=== PATIENT | male | born 1955 | race Caucasian/White ===

== ENCOUNTER 2021-03-22 16:50 | Emergency (ER) | payer MEDICAID, SELFPAY ==
[2021-03-22 16:51] VITALS: BP 160/104; PULSE 86; RESP 14; TEMP 36.4; O2SAT 97; BMI 28.6
--- NOTE | 2021-03-22 17:04 | CT_ITS ---
STUDY: CT BRAIN WITHOUT CONTRAST REASON FOR EXAM: Male, 65 years old. injury RADIATION DOSAGE (If Supplied By Facility): CTDIvol = ( 44.99 ) mGy, DLP = ( 779.24 ) mGycm TECHNIQUE: Transaxial CT imaging of the brain was performed without administration of intravenous contrast material. Individualized dose optimization techniques were used for this CT. COMPARISON: No relevant priors. FINDINGS: Normal soft tissue structures. Normal calvarium. Calcification of cavernous carotids. Mild atrophy and periventricular white matter ischemic changes.. There is diffuse hypoattenuation in the right frontal and parietal lobes likely on the basis of old infarct. Normal basal ganglia and thalami. Normal brainstem. Normal cerebellum. Sella deformity likely of no significance. There is no intracranial hemorrhage. There are no findings of an acute ischemic infarction. Normal visualized paranasal sinuses. CT/Brain/Head without Contrast IMPRESSION: Probable old right frontal parietal infarct. No evidence for acute intracranial bleed. Electronically Signed: Arnie Ortiz MD at 17:58 EDT , Service support ,
--- NOTE | 2021-03-22 17:04 | CT_ITS ---
STUDY: CT FACIAL BONES WITHOUT CONTRAST REASON FOR EXAM: Male, 65 years old. injury RADIATION DOSAGE (If Supplied By Facility): CTDIvol = ( 29.38 ) mGy, DLP = ( 576.84 ) mGycm TECHNIQUE: The patient was scanned in a multi detector CT scanner. Sagittal and coronal images were reconstructed. Individualized dose optimization techniques were used for this CT. COMPARISON: None. FINDINGS: There is premaxillary and paranasal soft tissue swelling appears to be in association with minimally depressed fracture of the right nasal bones and tiny chip fracture of the anterior nasal spine. There is a fracture and septal deviation towards the right with extensive mucosal thickening in the nasal cavities bilaterally Normal orbital caraballo and orbital contents.. Mild mucosal thickening of the ethmoid air cells. CT/Sinus/Facial Bone IMPRESSION: Minimally depressed fracture of the right nasal bone with apparent fracture of the nasal septum which is deviated towards the right with extensive soft tissue swelling in the nasal cavities. Tiny chip fracture of the anterior nasal spine Electronically Signed: Arnie Ortiz MD at 18:06 EDT , Service support ,
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
--- NOTE | 2021-03-22 17:12 | RAD_ITS ---
STUDY: X-RAY - RIGHT HAND REASON FOR EXAM: Male, 65 years old. rt thumb injury, pain. TECHNIQUE: 3 view(s) of the hand. COMPARISON: None. FINDINGS: Normal radiocarpal articulation. Normal distal radioulnar joint. Normal visualized carpal bones. Normal carpal articulations Normal carpometacarpal articulation of the thumb. Normal second through fifth carpometacarpal joints. Acute impacted comminuted fracture of the proximal first metacarpal with overlapping of the fracture fragments Normal metacarpophalangeal joint of the thumb. Normal interphalangeal joint of the thumb. Normal proximal and distal phalanges of the thumb. Normal metacarpophalangeal joints of the second through fifth fingers. Normal proximal interphalangeal joints of the second through fifth fingers. Minor degenerative changes of the DIP joints of the second, third and fifth digits Normal phalanges of the second through fifth fingers. Soft tissue swelling of the base of the thumb RAD/Hand Min 3 Views IMPRESSION: Acute impacted comminuted fracture of the proximal phalanx of the first metacarpal Electronically Signed: Arnie Ortiz MD at 17:49 EDT , Service support ,
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
[2021-03-22] MEDS: HYDROcodone Bitartrate/Apap 5/325 Tablet PO (17:59)
[2021-03-22 18:40] VITALS: BP 134/81; PULSE 82; RESP 15; O2SAT 98; O2SAT 99
== END 2021-03-22 18:42 | disposition home or self-care (01) ==
PROVIDERS: Emergency Provider Emergency Medicine
DX: S06.9X9A Unspecified intracranial injury with loss of consciousness of unspecified duration, initial encounter (principal); S02.2XXA Fracture of nasal bones, initial encounter for closed fracture; S62.511A Displaced fracture of proximal phalanx of right thumb, initial encounter for closed fracture; S80.812A Abrasion, left lower leg, initial encounter; W22.8XXA Striking against or struck by other objects, initial encounter; Y93.9 Activity, unspecified; Y92.89 Other specified places as the place of occurrence of the external cause; Y99.8 Other external cause status; Z95.1 Presence of aortocoronary bypass graft; Z86.73 Personal history of transient ischemic attack (TIA), and cerebral infarction without residual deficits; K21.9 Gastro-esophageal reflux disease without esophagitis; E78.5 Hyperlipidemia, unspecified; I25.2 Old myocardial infarction; F17.200 Nicotine dependence, unspecified, uncomplicated; I10 Essential (primary) hypertension
CPT/HCPCS: 29130; 70450; 70486; 73130; 73590; 99283